=== PATIENT | female | born 1960 | race Caucasian/White ===

== ENCOUNTER 2017-07-13 00:10 | Inpatient (IN) | payer OTHER ==
[2017-07-13] VITALS (11 sets, daily range): BP systolic 110–146; BP diastolic 63–82
[~2017-07-13] VITALS: Ht 160 cm; Wt 75.7 kg
[~2017-07-13 00:10] MED LIST: NO RTN MEDS
[2017-07-13] MEDS ORDERED: PHENAZOPYRIDINE 200 MG TAB PO ONE ×2 (05:45→10:05)
[2017-07-13 08:02] LABS: PLATELET COUNT, AUTOMATED 285 K/uL (150-450)
[2017-07-13] MEDS ORDERED: ceFAZolin(*) 2GM/D5W 50ML 50 ML IVPB ONE (09:35)
[2017-07-13] MEDS ORDERED: LIDOCAINE/SOD BICARB 8.4% SYR ID ONE (10:05)
[2017-07-13] MEDS ORDERED: MIDAZOLAM 2 MG/2 ML VIAL IVP PRN (10:05)
[2017-07-13] MEDS ORDERED: FAMOTIDINE 20 MG TAB PO ONE (10:05)
[2017-07-13] MEDS ORDERED: NORMOSOL R SOLN(*) 1000 ML BAG 1,000 ML IV PRN (10:05)
[2017-07-13] MEDS ORDERED: ROPIVACAINE 0.2% 20 ML VIAL ONE (10:13)
[2017-07-13] MEDS ORDERED: KETOROLAC 30 MG/ML VIAL ONE (10:30)
[2017-07-13] MEDS ORDERED: ROCURONIUM BROM 10 MG/ML 10 ML ONE (10:30)
[2017-07-13] MEDS ORDERED: ONDANSETRON 4 MG/2 ML VIAL ONE (10:30)
[2017-07-13] MEDS ORDERED: PROPOFOL EMUL(*) 10MG/ML 20 ML 40 ML ONE (10:30)
[2017-07-13] MEDS ORDERED: DEXAMETHASONE SOD PHOS 10MG/ML ONE (10:30)
[2017-07-13] MEDS ORDERED: LIDOCAINE MPF 1% 5 ML VIAL ONE (10:30)
[2017-07-13] MEDS ORDERED: HYDROmorphone HCL 2 MG/ML SDV ONE (10:49)
[2017-07-13] MEDS ORDERED: PHENYLEPHRINE/NS/PF 0.4MG/10ML ONE (11:12)
[2017-07-13] MEDS ORDERED: SUGAMMADEX SOD 200 MG/2 ML SDV ONE (12:40)
--- NOTE | 2017-07-13 13:14 | Post Operative Note ---
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 large posterior Fibroid approximately 10-12 cm X 10-12 cm (softball size), normal ovaries bilaterally, normal fallopian tubes with occulsion band across each tube. Uterus 798 gms. Procedure(s): JANET/BSO Specimen Removed:(Maybe N/A): Uterus, Bilateral ovaries, Bilateral fallopian tubes, peritoneal washings Complications: 0 known Fluids Fluids: 1700 cc NS u/o 75 cc Estimated Blood Loss: 200 Dictated Date OP Note Dictated: Jul 13, 2017 Time OP Note Dictated: 17:46 AMANDA MAKI DO Jul 13, 2017 13:14
[2017-07-13] MEDS ORDERED: MORPHINE 2 MG/ML SYR IVP PRN (13:15)
[2017-07-13] MEDS ORDERED: ONDANSETRON 4 MG/2 ML VIAL IV PRN (13:15)
[2017-07-13] MEDS ORDERED: SIMETHICONE 80 MG CHEW CHEW PRN (13:15)
[2017-07-13] MEDS ORDERED: ZOLPIDEM TARTRATE 10 MG TAB PO PRN (13:15)
[2017-07-13] MEDS ORDERED: PROMETHAZINE 25 MG/ML 1 ML AMP IVP PRN (13:15)
[2017-07-13] MEDS ORDERED: fentaNYL CITR 100 MCG/2 ML AMP ONE ×2 (13:19→14:00)
[2017-07-13] MEDS: DLR(*) 1000 ML BAG 1,000 ML IV PRN ×2 (14:55→22:53)
[2017-07-13] MEDS ORDERED: oxyCODONE HCL 5 MG CAP PO PRN (16:10)
[2017-07-13] MEDS ORDERED: ACETAMINOPHEN 325 MG TAB PO SCH (17:00)
[2017-07-13] MEDS: KETOROLAC 30 MG/ML VIAL IVP SCH ×2 (17:04→22:55)
--- NOTE | 2017-07-13 17:31 | OB/GYN Progress Note ---
OB Subjective Progress Notes Subjective Doing good this afternoon. Reports pain under control. Hasn't got out of bed yet. Tolerating regular diet. GI: NEG Nausea, NEG Vomiting, NEG Flatus, NEG Bowel Movement : Vaginal Bleeding, Scant Pain: Mild, Tolerating PO Pain Meds Neurological: No Headache, No Other Eyes: No Visual Disturbances OB Objective Physical Exam Vital Signs Date Time Temp Pulse Resp B/P (MAP) Pulse Ox O2 Delivery O2 Flow Rate FiO2 07/13/17 16:45 81 97 Nasal Cannula 0.5 07/13/17 16:30 122/71 (88) 07/13/17 15:44 15 07/13/17 14:30 97.7 Intake and Output 07/14/17 07:00 Intake Total 2090 ml Output Total 240 ml Balance 1850 ml Intake Oral 240 ml IV Total 1850 ml Output Urine Total 40 ml Other 200 ml General Appearance: Alert/Awake/No Acute Distress Neurological: No Gross deficits Eyes: Normal Extraocular Movement & Vison ENT: Normal Cardiovascular: Normal Rhythm & Peripheral Pulses, Regular Rate and Rhythm Respiratory: No Respiratory Distress Incision: Clean, Dry, Dermabond Result Diagram: 07/13/17 0756 07/13/17 0756 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 Plan to d/c rios in the am. Increase ambulation. Advance diet. AMANDA BENTLEY DO Jul 13, 2017 17:31
[2017-07-13] MEDS: ACETAMINOPHEN 325 MG TAB PO SCH (18:14)
--- NOTE | 2017-07-13 19:50 | OPERATIVE REPORT 1 ---
EVENT DATE: July 13, 2017 SURGEON: Amauri Maki DO ANESTHESIOLOGIST: Jaylon Cline MD ANESTHESIA: General endotracheal intubation with 0.2% ropivacaine 20 mL for local only. WILDLIFE PHOTOGRAPHER: Johann Cai MD PREOPERATIVE DIAGNOSES 1. A 57-year-old gravid female. 2. Pelvic mass. 3. Abnormal uterine bleeding/leiomyoma. POSTOPERATIVE DIAGNOSES 1. A 57-year-old gravid female. 2. Pelvic mass. 3. Abnormal uterine bleeding/leiomyoma. PROCEDURE PERFORMED Total abdominal hysterectomy with bilateral salpingo-oophorectomy. FINDINGS Large uterus approximately 20 weeks size, to the umbilicus. There is a large posterior fibroid approximately 10 to 12 cm x 10 to 12 cm, softball size. Normal tubes and ovaries bilaterally. Normal fallopian tubes with occlusion band across each fallopian tube. Uterus weighed 789 gm. PATHOLOGY Uterus, bilateral ovaries, bilateral fallopian tubes, and peritoneal washings. ESTIMATED BLOOD LOSS 200 mL INTRAVENOUS FLUIDS Normal saline 1700 mL. URINE OUTPUT 75 mL COMPLICATIONS None known. CONDITION Stable to PACU, then to the floor. COUNTS Correct for all needles, laps, sponges, and instruments. INDICATIONS AND CONSENT The patient is a 57-year-old gravid female who presented to clinic with the chief complaint of increasing abdominal girth. The patient reports that her sister recently was given a diagnosis of ovarian cancer, and the patient is concerned about the same diagnosis. The patient was referred through the [facility] after having an abnormal MRI as well as an abnormal ultrasound. Ultrasound showed a large pelvic mass approximately 10 x 15 x 12 cm. MRI confirmed a large mass with the uterus approximately 19 cm with a normal right ovary and a not visualized left ovary. MRI showed that the mass appeared to be the same density as the uterine tissue with that being a suspected fibroid. The patient underwent CA-125 blood draw with result of 20, as well as an endometrial biopsy that showed proliferative endometrium. The patient was offered [facility] oncology referral secondary to large pelvic mass as well as family history of ovarian cancer in sister roughly the same age as the patient. The patient decided that travel time to [place] or [place] would be too taxing emotionally as well as on her psyche. Dr. Randa Angel of the [facility] was consulted, who felt like it was also a uterine pathology, and with the findings of the normal CA-125 as well as a benign endometrial biopsy, the patient could proceed with the procedure in [place]. Secondary to the large size of the patient's uterus, she was consented for a total abdominal hysterectomy, and with the patient the age of 57, also a bilateral salpingo-oophorectomy. The patient signed the appropriate consents and was taken to the operating room accordingly. DESCRIPTION OF PROCEDURE The patient was taken to the operating room where she was placed in the dorsal supine position. General endotracheal anesthesia was obtained. The patient was then prepped and draped in the usual sterile manner. A midline vertical incision was created from approximately 1 to 2 cm superior to the pubic symphysis to just below the umbilicus. This incision was carried sharply down all the way over the fascia. Once the fascia was visualized, it was dissected sharply off of the rectus muscles, extending that incision both superiorly and inferiorly. The rectus muscles were at midline. The peritoneum was grasped with hemostats and entered sharply with Metzenbaum scissors. The peritoneal incision was carried sharply down to the area of the bladder and then superiorly toward the umbilicus. At this point, the [place] retractor was placed, paying special attention to the depth of the [place] retractor to avoid any nerve injuries. Approximately 20 mL of normal saline were placed in the posterior cul-de-sac, then removed, and sent to Pathology as peritoneal washings. At this point, the abdomen was inspected and found to be without any lesions or masses with the exception of the uterine mass. Attention was then turned to performing the hysterectomy. The right IP ligament was visualized. A window was created in the peritoneum. The right IP ligament was doubly clamped with Aurea clamps and transected and then suture ligated with a 0 Vicryl. The same procedure was performed on the left IP ligament. At this point, the right round ligament was grasped with a Renee clamp and suture ligated. With the round ligament ligated, the broad ligament was entered, and the anterior leaf was created. The same procedure was performed on the left round ligament to suture ligate the round ligament and then finish the anterior leaf of the broad ligament. A posterior leaf was also created. The uterus was placed on tension. The uterine arteries bilaterally were clamped with Aurea clamps, transected, and suture ligated. Aurea clamps were then used down the cervix in a sequential manner, suture ligating the cardinal ligaments bilaterally with a [address] down to the uterosacral ligaments. These were clamped with Aurea clamps and then transected using a scalpel. With both uterosacral ligament clamped, transected , and suture ligated with 0 Vicryl, curved Aurea clamps were then placed just distal to the cervix over the vaginal cuff, and then the uterus was removed, transecting the vagina just proximal to the clamps. The uterus was inspected in its entirety with the cervix in its entirety removed. The uterus was then given to nursing staff to take then to the Pathology Department. At this point , the uterosacral ligaments had [id number] stitches placed through them, and they were brought together in midline. The vaginal cuff was then closed with a 0 Vicryl in a running locked manner. After the vaginal cuff was closed, copious amounts of normal saline were used for irrigation with the pedicles noted to be hemostatic. The vaginal cuff was once again inspected and noted approximately 2 cm of vaginal cuff tissue proximally before the bladder was visualized distally. With the bladder intact and pedicles hemostatic, attention was then turned to closing the abdomen. The [place] retractor was removed. All laparotomy sponges were removed from the abdomen from bowel packing. With sponges removed, a ribbon was placed inside the incision. The peritoneum was grasped with hemostats. The peritoneum was closed with a 0 Vicryl in a running manner. The deep fascia was then closed with a looped PDS. Two looped PDS sutures were used, one at the superior end of the incision and another at the inferior part of the incision. These were then closed in a running manner, meeting in the middle of the incision. At this point, copious amounts of irrigation were then used in the subcutaneous tissue. The subcutaneous tissue was greater than 2 cm thick, so it was closed with a 3-0 Monocryl in a running manner. This was also used to help alleviate tension from the incision site. A 4-0 Monocryl was then used to close the skin in subcuticular manner, and then Dermabond was placed over the incision. At this point, the patient was cleaned. She was awoken and transferred to the recovery room in stable condition. NICOLAS
[2017-07-13] MEDS: DOCUSATE CALCIUM 240 MG CAP PO SCH (21:02)
[2017-07-13] MEDS: FAMOTIDINE 20 MG TAB PO SCH (21:03)
[2017-07-14] MEDS: ACETAMINOPHEN 325 MG TAB PO SCH ×4 (00:15→18:39)
[2017-07-14 00:17] VITALS: BP 127/67
[2017-07-14 03:20] VITALS: BP 122/72
[2017-07-14] MEDS: KETOROLAC 30 MG/ML VIAL IVP SCH (05:04)
[2017-07-14 07:20] VITALS: BP 133/71
[2017-07-14 08:32] LABS: PLATELET COUNT, AUTOMATED 274 K/uL (150-450)
[2017-07-14] MEDS ORDERED: INFLUENZA VIRUS VAC 0.5 ML SYR IM ONLY ONE (09:00)
[2017-07-14] MEDS: FAMOTIDINE 20 MG TAB PO SCH ×2 (09:15→22:26)
[2017-07-14] MEDS: DOCUSATE CALCIUM 240 MG CAP PO SCH ×2 (09:15→22:25)
--- NOTE | 2017-07-14 10:42 | OB/GYN Progress Note ---
OB Subjective Progress Notes Subjective Doing good this morning. Reports pain 3-4/10. Tolerating PO intake. Pain controlled with PO pain medications. Ambulatory in [place] overnight. Still has rios catheter. GI: NEG Nausea, NEG Vomiting, NEG Flatus, NEG Bowel Movement : Vaginal Bleeding, Scant Pain: Mild, Tolerating PO Pain Meds Neurological: No Headache, No Other Eyes: No Visual Disturbances OB Objective Physical Exam Vital Signs Date Time Temp Pulse Resp B/P (MAP) Pulse Ox O2 Delivery O2 Flow Rate FiO2 07/14/17 09:15 94 Room Air 07/14/17 07:20 0.5 07/14/17 07:20 99.2 88 16 133/71 (91) Intake and Output 07/15/17 07:00 Intake Total 120 ml Output Total 1200 ml Balance -1080 ml Intake Oral 120 ml Output Urine Total 1200 ml # Voids 1 General Appearance: Alert/Awake/No Acute Distress Neurological: No Gross deficits Eyes: Normal Extraocular Movement & Vison ENT: Normal Cardiovascular: Normal Rhythm & Peripheral Pulses, Regular Rate and Rhythm Respiratory: No Respiratory Distress Incision: Clean, Dry, Intact, Dermabond, Other (bruising along lateral aspects of incision) : Normal Musculoskeletal: No Weakness/Pain Extremities: No Cyanosis,Clubbing or Edema Integumentary: Skin Intact without Lesions or Rash Psychological: Alert & Oriented X3, Appropriate Mood & Affect Result Diagram: 07/14/17 0808 07/13/17 0756 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 Pt to get rios catheter out this morning. Plan to increase ambulation and further advance diet. Expect patient to go home on POD # 2. (2) Abnormal uterine bleeding (AUB) AMANDA BENTLEY DO Jul 14, 2017 10:42
[2017-07-14] MEDS: IBUPROFEN 800 MG TAB PO SCH ×2 (12:02→18:39)
[2017-07-14 14:25] VITALS: BP 130/63
[2017-07-14 15:26] VITALS: Ht 160 cm; Wt 75.7 kg
[2017-07-14 15:40] VITALS: BP 140/73
[2017-07-14 19:30] VITALS: BP 125/68
[2017-07-15 04:05] VITALS: BP 141/82
[2017-07-15] MEDS: ACETAMINOPHEN 325 MG TAB PO SCH (04:08)
[2017-07-15] MEDS: IBUPROFEN 800 MG TAB PO SCH (04:08)
[2017-07-15 07:30] VITALS: BP 149/84
[2017-07-15] MEDS ORDERED: OXYC-865 PO (08:34)
[2017-07-15] MEDS ORDERED: IBUP800T37 PO (08:34)
--- NOTE | 2017-07-15 08:42 | OB/GYN Discharge Summary ---
Discharge Summary Reason for Hosp/Final Diag: (1) Pelvic mass in female (2) Abnormal uterine bleeding (AUB) Hospital Course & Plan: Pt presented for a scheduled JANET/BSO. Underwent procedure with out any difficulty. Remained as an inpatient for 2 days post operatively. Pt was tolerating regular diet, ambulatory, voiding with out any difficulty. Pt was discharged home on POD #2. Lates Vital Signs Vital Signs Date Time Temp Pulse Resp B/P (MAP) Pulse Ox O2 Delivery O2 Flow Rate FiO2 07/15/17 04:05 97.5 90 16 141/82 (101) 07/14/17 19:30 92 1.0 07/14/17 15:40 Room Air Weight (Pounds): 167 Result Diagram: 07/14/17 0808 07/13/17 0756 Condition: Improved Discharge: Home Home Meds Active Scripts Oxycodone Hcl/Acetaminophen (PERCOCET 5-325 MG TABLET) 1 Each Tablet, 1 EACH PO Q4-6H Y for PAIN, #30 TAB 0 Refills Prov:AMANDA BENTLEY DO 07/15/17 Ibuprofen (IBUPROFEN) 800 Mg Tablet, 800 MG PO 0400,1200,2000, #30 TAB 0 Refills Prov:AMANDA BENTLEY DO 07/15/17 [facility] [phone], Dr. Bentley [phone] Follow up in: 2 wks PO Discharge Diet: As Tolerates, Resume Prior Admit Diet, Increase Fluid Intake Discharge Activity: As Tolerates, No Heavy Lifting > 10lb, Pelvic Rest AMANDA BENTLEY DO Jul 15, 2017 08:42
--- NOTE | 2017-07-15 08:59 | OB/GYN Progress Note ---
OB Subjective Progress Notes Subjective Doing good this morning. Tolerating regular diet. Ambulatory. Voiding with out any difficulty. Pain 1.5/10. GI: NEG Nausea, NEG Vomiting, NEG Flatus, NEG Bowel Movement : Voiding Well Pain: Mild, Comfortable, Tolerating PO Pain Meds Neurological: No Headache, No Other Eyes: No Visual Disturbances OB Objective Physical Exam Vital Signs Date Time Temp Pulse Resp B/P (MAP) Pulse Ox O2 Delivery O2 Flow Rate FiO2 07/15/17 04:05 97.5 90 16 141/82 (101) 07/14/17 19:30 92 1.0 07/14/17 15:40 Room Air General Appearance: Alert/Awake/No Acute Distress Neurological: No Gross deficits Eyes: Normal Extraocular Movement & Vison ENT: Normal Cardiovascular: Normal Rhythm & Peripheral Pulses, Regular Rate and Rhythm Respiratory: No Respiratory Distress Incision: Clean, Dry, Intact, Dermabond, Other (bruising along lateral aspects of incision) : Normal Musculoskeletal: No Weakness/Pain Extremities: No Cyanosis,Clubbing or Edema Integumentary: Skin Intact without Lesions or Rash Psychological: Alert & Oriented X3, Appropriate Mood & Affect Result Diagram: 07/14/17 0808 07/13/17 0756 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 Pathology benign. Follow up in 2 weeks. (2) Abnormal uterine bleeding (AUB) AMANDA BENTLEY DO Jul 15, 2017 08:59
[2017-07-15] MEDS ORDERED: INFLUENZA VIRUS VAC 0.5 ML SYR IM ONLY ONE (09:05)
[2017-07-15] MEDS: DOCUSATE CALCIUM 240 MG CAP PO SCH (09:10)
[2017-07-15] MEDS: FAMOTIDINE 20 MG TAB PO SCH (09:10)
[2017-07-15] MEDS ORDERED: ACETAMINOPHEN 325 MG TAB PO SCH (10:00)
[2017-07-15] MEDS ORDERED: IBUPROFEN 800 MG TAB PO SCH (12:00)
== END 2017-07-15 09:45 | disposition home or self-care (01) | DRG 743 ==
LOC: OR 00:10 → UNDOADMOB 14:30 → OBSVTOIN 14:30 → INTOOBSV 14:30 → PED 14:30
PROVIDERS: ADMIT Student in an Organized Health Care Education/Training Program; ATTEND Student in an Organized Health Care Education/Training Program
PROC: 0UT70ZZ Resection of Bilateral Fallopian Tubes, Open Approach (ICD-10-PCS; 2017-07-13)
PROC: 0UT20ZZ Resection of Bilateral Ovaries, Open Approach (ICD-10-PCS; 2017-07-13)
PROC: 0UTC0ZZ Resection of Cervix, Open Approach (ICD-10-PCS; 2017-07-13)
PROC: 3E1M38X Irrigation of Peritoneal Cavity using Irrigating Substance, Percutaneous Approach, Diagnostic (ICD-10-PCS; 2017-07-13)
PROC: 0UT90ZZ Resection of Uterus, Open Approach (ICD-10-PCS; principal; 2017-07-13 10:30)
DX: D25.9 Leiomyoma of uterus, unspecified (principal)
CPT/HCPCS: 36415; 82040; 82247; 82310; 82374; 82435; 82565; 82947; 84075; 84132; 84155; 84295; 84450; 84460; 84520; 85025; 88104; 88307; J0690; J1100; J1170; J1885; J2001; J2250; J2370; J2405; J2550; J2704; J2795; J3010